=== PATIENT | male | born 1975 | race Caucasian/White ===

== ENCOUNTER 2021-01-12 11:00 | Outpatient (REF) | payer BC, SELFPAY | END 2021-01-12 11:01 | disposition home or self-care (01) | LOC: HO.LAB 11:00 | PROVIDERS: Visit Provider Internal Medicine | DX: Z20.822 Contact with and (suspected) exposure to COVID-19 (principal) | CPT/HCPCS: 36415; C9803; U0003; U0005 ==

== ENCOUNTER 2024-05-13 12:25 | Outpatient (AMB) | payer OTHER, SELFPAY ==
--- NOTE | 2024-05-13 12:24 | MHC.OFFWIV ---
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 This has been keeping him up at night and persistent throughout the day as well. He reports some mild body aches, however denies any fever, chills, or other sick symptoms. Denies any shortness of breath. Nonsmoker. Took a COVID test at home which was negative. Denies any exposure to sick contacts. [facility] Social History Patient Tobacco Use Status: Never used Tobacco Review of Systems Const All systems reviewed & are unremarkable except as noted in HPI and below Physical Exam Vital Signs: Last Vital Signs Temp 98.4 F 05/13/24 12:28 Pulse 76 05/13/24 12:28 BP 140/78 H 05/13/24 12:28 Pulse Ox 96 05/13/24 12:28 Oxygen Delivery Method Room Air 05/13/24 12:28 BMI result Body Mass Index 31.3 Const General: cooperative, healthy appearing, comfortable and no acute distress HEENT Head: Yes normal to inspection Ears: hearing grossly normal bilaterally General nose exam: Normal external nose present Throat: Yes posterior oropharynx normal Neck Neck: Yes no lymphadenopathy Resp Effort & Inspection: normal respiratory effort and Actively coughing (nonproductive, persistent severe cough) Quality: actively coughing Auscultation: clear to auscultation bilaterally Cardio Rate: regular rate Rhythm: regular rhythm Skin General skin exam: no rashes or lesions noted Extrem General: Yes capillary refill normal and Yes no clubbing, cyanosis or edema Psych Appearance: grossly normal Mental Status: mental status grossly normal Speech and movement: Normal speech and movement present Assessment & Plan Assessment & Plan (1) Nonproductive cough: Code(s): R05.8 - Other specified cough Plan: I have prescribed a short course of prednisone, as well as benzonatate for patient. We discussed that indications for antibiotics are not evident at this time. We reviewed indications, use, possible side effects of medications. If he does not improve with treatment, or if new symptoms develop, he should return to the clinic for further evaluation. He verbalizes understanding and agrees to plan. Medications: New prednisone 20 mg PO BID 3 days 6 tabs 0RF R05.8 - Other specified cough benzonatate Take up to twice a day as needed for cough. 100 mg PO BID 7 days PRN 14 caps 0RF cough R05.9 - Cough, unspecified Coding Level of Care Code Est Pt Level 4 (93043) Diagnoses Nonproductive cough R05.8
[2024-05-13 12:28] VITALS: BP 140/78; PULSE 76; TEMP 36.9; O2SAT 96; BMI 31.3
== END 2024-05-13 12:47 | disposition home or self-care (01) ==
PROVIDERS: Visit Provider Nurse Practitioner Family
DX: R05.8 Other specified cough (principal)
CPT/HCPCS: 99214